=== PATIENT | male | born 1980 | race Two or more races ===

== ENCOUNTER 2024-01-11 08:42 | Emergency (ER) | payer MEDICAID ==
[~2024-01-11] VITALS: Ht 167.6 cm; Wt 89.7 kg
[2024-01-11 09:35] LABS: Basophils # (auto) 0 10 ^3/uL (0-0.2); Basophils % (auto) 0.6 % (0.0-2.0); Eosinophils # (auto) 0.1 10 ^3/uL (0-0.8); Eosinophils % (auto) 1.7 % (0.0-7.0); Hematocrit 43.4 % (41.0-53.0); Hemoglobin 15.1 g/dL (13.5-17.5); Lymphocytes # (auto) 2.5 10 ^3/uL (0.4-5.4); Lymphocytes % (auto) 36.6 % (10.0-50.0); Mean Corpuscular Hemoglobin 32.5 pg (28.0-32.0); Mean Corpuscular Hgb Conc. 34.8 g/dL (32.0-36.0); Mean Corpuscular Volume 93.3 fL (80.0-100.0); Monocytes # (auto) 0.5 10 ^3/uL (0-1.3); Monocytes % (auto) 7.2 % (0.0-12.0); Neutrophils # (auto) 3.7 10 ^3/uL (1.6-8.6); Neutrophils % (auto) 53.9 % (37.0-80.0); Nucleated Red Blood Cells % 0.1 %; Red Blood Cells 4.65 10^6/uL (4.5-5.90); Red Cell Distribution Width 12.6 % (11.8-14.3); White Blood Cell 6.8 10^3/uL (4.4-10.8)
[2024-01-11 09:55] LABS: Alanine Aminotransferase 33 U/L (7-40); Albumin 4.5 g/dL (3.2-4.8); Alkaline Phosphatase 69 U/L (46-116); Anion Gap 9 (5-15); BUN/Creatinine Ratio 20.7 (10.0-20.0); Bilirubin, Total 0.4 mg/dL (0.2-1.0); Blood Urea Nitrogen 18 mg/dL (9-23); Calcium 9.3 mg/dL (8.5-10.1); Carbon Dioxide 24 mmol/L (20-30); Chloride 107 mmol/L (98-107); Glucose 90 mg/dL (74-106); Potassium 3.9 mmol/L (3.5-5.1); Sodium 140 mmol/L (136-145); Total Protein 6.9 g/dL (5.7-8.2)
[2024-01-11 10:18] LABS: Aspartate Aminotransferase 22 U/L (13-40)
[2024-01-11 12:12] LABS: Erythrocyte Sedimentation Rate 7 mm/hr (0-20)
[2024-01-11] MEDS ORDERED: ACET500T58 PO (13:02)
[2024-01-11 13:20] VITALS: BP 117/83; PULSE 78; RESP 18; TEMP 98; O2SAT 98
== END 2024-01-11 13:21 | disposition home or self-care (01) ==
LOC: ER 08:42
DX: R51.9 Headache, unspecified (principal); F41.9 Anxiety disorder, unspecified; F15.90 Other stimulant use, unspecified, uncomplicated; Z87.891 Personal history of nicotine dependence
CPT/HCPCS: 36415; 70450; 80053; 84484; 85025; 85652; 93005